=== PATIENT | female | born 1945 | race Caucasian/White ===

== ENCOUNTER 2016-10-25 17:08 | Emergency (ER) | payer OTHER ==
[~2016-10-25] VITALS: Ht 162.6 cm; Wt 79.4 kg
[~2016-10-25 17:08] MED LIST: AMOXICILLIN 50500 M1 PO; AMOXICILLIN 50500 MG PO; APAP/CODEINE ELI5 M1 OR; ASPIRIN325 PO; CIPROFLOXACIN500 M1 PO; CIPROFLOXACIN500 M3 PO; FISHOIL; FLAGYL500 MG PO; HYDROCODON-ACE1 EAC7 PO; HYDROCODONE-AP1 EAC6 PO; LEVAQUIN 500 M500 M1 PO; LOTREL 5-10 MG1 EACH PO; MEDROLDOSEPACK PO; MINOCYCLINE HC100 M2 PO; MIRALAX255 GM PO; NAPROSYN500 MG PO; NORCO 5-325 TA1 EACH PO; NORFLEX100 MG PO; OMEPRAZOLE40 MG PO; PANTOPRAZOLE SO40 M1 PO; PEPCID PO; PREMARIN0.625 MG PO; PREVACID30 M1 PO; PROVERA10 MG PO; ROBITUSSIN DM118 ML PO; VENTOLIN HFA 1818 GM INH; VITAMINC500 PO; [UNRECOGNIZED DRUG - OTHER]
[2016-10-25 17:54] LABS: URINE BILIRUBIN NEGATIVE (Negative); URINE BLOOD TRACE (Negative); URINE COLOR YELLOW; URINE GLUCOSE-RANDOM* NEGATIVE (Negative); URINE KETONES NEGATIVE (Negative); URINE NITRITE NEGATIVE (Negative); URINE PROTEIN (DIPSTICK) NEGATIVE (Negative); URINE UROBILINOGEN 0.2 E.U./dl (0.2-1.0)
[2016-10-25] MEDS ORDERED: AMLODIPINE BESY10 MG PO (18:04)
[2016-10-25] MEDS ORDERED: PROTONIX40 M1 PO (18:04)
[2016-10-25 18:05] LABS: ABSOLUTE NEUTROPHILS 2.7 thou/uL (1.4-8.2); BASOPHILS 1.4 % (0.0-2.0); EOSINOPHILS 1.6 % (0.0-3.0); HEMATOCRIT 41.6 % (37.0-47.0); HEMOGLOBIN 14.1 gm/dL (12.0-15.0); MCH 30.5 pg (26.0-34.0); MCHC 33.9 g/dL (28.0-37.0); MONOCYTES 10.2 % (1.0-8.0); PLATELET COUNT 194 thou/uL (150-400); POLYS 45.8 % (36.0-66.0); RBC 4.62 mil/uL (4.20-5.00); RDW 13.8 % (10.5-14.5)
[2016-10-25 18:09] LABS: MANUAL DIFF NO
[2016-10-25 18:14] LABS: CALCIUM 9.1 mg/dL (8.5-10.1); CREATININE 0.8 mg/dL (0.6-1.0); POTASSIUM 3.7 mmol/L (3.5-5.1)
[2016-10-25 18:19] LABS: ALBUMIN 3.8 g/dL (3.4-5.0); DIRECT BILIRUBIN 0.2 mg/dL (<0.1-0.3); TOTAL BILIRUBIN 0.7 mg/dL (<0.1-1.0); TOTAL PROTEIN 7.1 g/dL (6.4-8.2)
[2016-10-25 19:51] VITALS: BP 130/87
== END 2016-10-25 19:52 | disposition home or self-care (01) ==
LOC: ER 17:08
PROVIDERS: Nurse Practitioner
DX: R10.11 Right upper quadrant pain (principal); R10.12 Left upper quadrant pain; R10.13 Epigastric pain; K21.9 Gastro-esophageal reflux disease without esophagitis; I10 Essential (primary) hypertension; M13.88 Other specified arthritis, other site; J42 Unspecified chronic bronchitis; K22.70 Barrett's esophagus without dysplasia; F17.210 Nicotine dependence, cigarettes, uncomplicated; Z90.49 Acquired absence of other specified parts of digestive tract; Z86.12 Personal history of poliomyelitis; Z88.1 Allergy status to other antibiotic agents; Z88.6 Allergy status to analgesic agent